=== PATIENT | female | born 2005 | race Caucasian/White ===

== ENCOUNTER 2024-10-01 20:18 | Emergency (ER) | payer BC, SELFPAY ==
[2024-10-01 20:32] VITALS: BP 129/84; PULSE 99; RESP 20; TEMP 36.6; O2SAT 99; BMI 26.1
--- NOTE | 2024-10-01 20:32 | ED_ITS ---
HPI - General Adult General Chief complaint: Abdominal Pain Stated complaint: abd pain, migraine Related Data Allergies Allergy/AdvReac Type Severity Reaction Status Date / Time No Known Allergies Allergy Verified 10/01/24 20:34 [facility] Social History Social History Advance Directives: No Advance Directives Information Provided: No Physical Exam ED Vital Signs: BMI result Body Mass Index 26.1 Course Course Course Narrative: RME, this is a rapid medical exam performed by Juan Acharya please refer to primary provider for complete H&P- 19 year year old female presents for evaluation of lower abdominal and vaginal bleeding. She reports that she was seen at a hospital in [place] 3 days ago for rectal bleeding and was discharged home. Plan for labs, UA and testing Medical Decision Making Lab Data 10/01/24 21:55 10/01/24 21:55 Labs: Lab Results 10/01/24 10/01/24 Range/Units 21:55 23:00 WBC 8.5 (4.8-10.8) X10*3/uL RBC 4.99 (4.20-5.50) X10*6/uL Hgb 13.6 (12.0-16.0) g/dl Hct 40.8 (37.0-47.0) % MCV 81.8 (80.0-98.0) fL MCH 27.3 (27.0-33.0) pg MCHC 33.3 (31.0-35.0) g/dl RDW 14.2 (11.0-16.0) % Plt Count 546 H (160-400) X10*3/uL MPV 9.1 L (9.4-12.3) fL Immature Gran % (Auto) 0.2 (0.0-0.4) % Neut % (Auto) 50.5 (45-73) % Lymph % (Auto) 37.1 (20-40) % [place] % (Auto) 8.8 (2-11) % Eos % (Auto) 2.6 (0-4) % Baso % (Auto) 0.8 (0-2) % Lymph # (Auto) 3.2 (1.2-4.9) X10*3/uL [place] # (Auto) 0.8 (0.1-1.2) X10*3/uL Eos # (Auto) 0.2 (0.0-0.4) X10*3/uL Baso # (Auto) 0.1 (0.0-0.2) X10*3/uL Abs Immat Gran (auto) 0.02 (0.00-0.03) X10*3/uL Absolute Neuts (auto) 4.3 (2.0-8.3) x10*3/uL Absolute Nucleated RBC 0.000 (0.0-0.012) X10*3/uL Nucleated RBC % (auto) 0.0 (0.0-0.2) /100WBC Sodium 139 (135-145) mmol/L Potassium 4.2 (3.3-5.1) mmol/L Chloride 107 (96-108) mmol/L Carbon Dioxide 23 (22-29) mmol/L Anion Gap 13 (12-20) BUN 13 (9-16) mg/dL Creatinine 0.69 (0.5-1.4) mg/dL Estim Creat Clear Calc 96.1 Estimated GFR > 60 Random Glucose 90 (60-115) mg/dL Calcium 9.4 (8.4-10.2) mg/dL Total Bilirubin 0.6 (0.0-1.0) mg/dL AST 19 (5-31) U/L ALT 14 (0-31) U/L Alkaline Phosphatase 71 (39-117) U/L Total Protein 8.5 H (6.5-8.0) g/dL Albumin 4.8 (3.5-5.0) g/dL Lipase 11 (8-78) U/L Beta HCG, Quant < 2 mIU/mL Urine Color Dark Yellow Urine Appearance Cloudy Urine pH 5.5 (5.0-9.0) Ur Specific [place] >= 1.030 H (1.005-1.025) Urine Protein Trace (Neg-Trace) mg/dL Urine Glucose (UA) Negative (Negative) mg/dL Urine Ketones Negative (Negative) mg/dL Urine Blood Moderate (2+) H (Negative) Urine Nitrite Negative (Negative) Ur Leukocyte Esterase Negative (Negative) Urine RBC 11-20 H (0-2) /HPF Urine WBC 6-10 H (0-5) /HPF Ur Squamous Epith Cells 11-20 (0-2) /HPF Urine Bacteria 3+ (None Seen) Hyaline Casts 0-2 (0-2) /LPF Discharge Plan Discharge Clinical Impression: Abdominal pain Patient Disposition: Left W/O Completing Treatment Discharge Date/Time: 10/02/24 05:01
[2024-10-01 22:00] LABS: MANUAL DIFF FLAG NO
[2024-10-01 22:01] LABS: Basophils Absolute Auto 0.1 X10*3/uL (0.0-0.2); Basophils Percent Auto 0.8 % (0-2); Eosinophils Absolute Auto 0.2 X10*3/uL (0.0-0.4); Eosinophils Percent Auto 2.6 % (0-4); Hematocrit 40.8 % (37.0-47.0); Hemoglobin 13.6 g/dl (12.0-16.0); Imm Gran Abs Auto 0.02 X10*3/uL (0.00-0.03); Imm Gran Pct Auto 0.2 % (0.0-0.4); Lymphocytes Absolute Auto 3.2 X10*3/uL (1.2-4.9); Lymphocytes Percent Auto 37.1 % (20-40); Mean Corpuscular HGB Conc 33.3 g/dl (31.0-35.0); Mean Corpuscular Hemoglobin 27.3 pg (27.0-33.0); Mean Corpuscular Volume 81.8 fL (80.0-98.0); Mean Platelet Volume 9.1 fL (9.4-12.3); Monocytes Absolute Auto 0.8 X10*3/uL (0.1-1.2); Monocytes Percent Auto 8.8 % (2-11); Neutrophils Absolute Auto 4.3 x10*3/uL (2.0-8.3); Neutrophils Percent Auto 50.5 % (45-73); Platelet Count 546 X10*3/uL (160-400); Red Blood Count 4.99 X10*6/uL (4.20-5.50); Red Cell Distribution Width 14.2 % (11.0-16.0); White Blood Count 8.5 X10*3/uL (4.8-10.8)
--- OUTSIDE RECORDS SUMMARY | 2024-10-01 22:12 | XMS_ITS | Clinical Summary ---
Author Organization [facility] Address [address] [place] [address] Care Team Providers Care Casing Soaker Name Role Phone Pcp, No Primary Care Provider Unavailabl e Allergies No known active allergies Medications albuterol HFA (PROVENTIL HFA;VENTOLIN HFA) 90 mcg/actuation inhaler Inhale 2 puffs every 6 (six) hours as needed for wheezing. Active norethindrone-ethi nyl estradiol-iron (09/01) 1 mg-20 mcg (21)/75 mg (7) per tabletIndications: Encounter for initial prescription of contraceptive pills Take 1 tablet by mouth daily. 84 tablet 3 1 Active pantoprazole (PROTONIX) 40 mg EC tabletIndications: gastroesophageal reflux disease Take 1 tablet (40 mg total) by mouth daily. 30 tablet 2 Active Active Problems Problem Noted Date Diagnosed Date Abdominal pain 05/08/2022 Family History Medical History Relation Name Comments Cancer (Ovarian) Maternal Great Grandmother Cancer (Breast) Other maternal great aunt Cancer (Colon) Neg Hx Relation Name Status Comments Maternal Great Grandmother Other maternal great aunt Alive Social History Tobacco Use Types Packs/Day Years Used Date Smoking Tobacco: Every Day Smokeless Tobacco: Never Comments:vaping Alcohol Use Standard Drinks/Week Comments Not Currently 0 (1 standard drink = 0.6 oz pur e alcohol) Hunger Vital Sign Answer Date Recorded Worried About Running Out of Food in the Last Ye ar Not on file 05/11/2022 Within the past 12 months, t he food you bought just didn't last and you didn't have money to get more. Patient declined PRAPARE - Transportation Answer Date Re corded In the past 12 months, has l ack of transportation kept you from medical appointments or from getting medications? Patient declined 05/11/2022 Lack of Transportation (Non-Medical) Not on file 05/11/2022 Violece/Safety Answer Date Recorded Are you concerned about your physical or emotional safety in your home or where you currently stay? No 12/06/2023 Comments No Sex and Gender Information Value Date Recorded Sex Assigned at Not on file Legal Sex Female 5:08 PM EDT Gender Identity Not on file Sexual Orientation Not on file Last Filed Vital Signs Vital Sign Reading Time Taken Comments Blood Pressure 131/58 12/06/2023 1:32 AM EDT Pulse 90 12/06/2023 3:26 AM EDT Temperature 36.8 ??C (98.2 ??F) 12/06/2023 1:32 AM ED T Respiratory Rate 18 12/06/2023 3:26 AM EDT Oxygen Saturation 98% 12/06/2023 3:26 AM EDT Inhaled Oxygen Concentration - - Weight 51.1 kg (112 lb 10.5 oz) 12/06/2023 1:32 AM EDT Height 147.3 cm (4' 10 ) 12/06/2023 1:32 AM EDT Body Mass Index 23.54 12/06/2023 1:32 AM EDT Plan of Treatment Health Maintenance Due Date Last Done Comments Pneumococcal immunization (0-49) (1 of 2 - PCV) 2009 07/18/2004, 2003, 2003, Additional history exists Hepatitis C Screening 2021 Annual Preventative Visit 07/30/2021 07/30/2020 Cervical Cancer Screening 02/23/2024 Influenza Vaccine (#1) 2024 7, 11/03/2015, 08/20/2014, Additional history exists DTaP,Tdap and Td Vaccines (7 - Td or Tdap) 08/20/2024 08/20/2014, 05/01/2007, 06/13/2004, Additional history exists Zoster Vaccines (1 of 2) 2053 Hepatitis B Vaccines Completed 2003, 2003, 2003 MMR Vaccines Completed 05/01/2007, 03/11/2004 Varicella Vaccines Completed 05/01/2007, 06/13/2004 Hepatitis A Vaccines Completed 06/10/2009, 05/01/20 07 Polio Vaccines Completed 11/01/2009, 08/15, 2003, Additional history exists HPV Vaccines Completed 02/03/2016, 10/12, 08/20/2014 Meningococcal A Vaccine Completed 10/30/2019, 08/20 Rotavirus Vaccines Aged Out No longer eligible based on patient's age to complete this topic Insurance [employer] Advance Directives * Full Code (Latest Code Status on File) Date Activated Date Inactivated Comments 05/08/2022 2:20 PM 05/10/2022 8:49 PM Care Teams Casing Soaker Relationship Specialty Start Date End Date Pcp, [address] [address] [place] [address] PCP - General 09/23/21
--- OUTSIDE RECORDS SUMMARY | 2024-10-01 22:12 | XMS_ITS | Encounter Summary ---
Author Organization [facility] Address [address] [place] [address] Care Team Providers Care Sewer Name Role Phone Francisco J Diaz Primary Care Provider Zeynep Husain Unavailable Encounter Details Date Type Department Care Team ([facility] Contact Info) Description 12/18/2023 [facility] [address] [place] [address] Abigail Dai MD [address] [place] [address] Social History Tobacco Use Types Packs/Day Years Used Date Smoking Tobacco: Never Assessed Sex and Gender Information Value Date Recorded Sex Assigned at Female 12/16/2023 10:38 PM EDT Gender Identity Nonbinary 12/16/2023 10:38 PM EDT Sexual Orientation Pansexual 12/16/2023 10 :38 PM EDT Job Start Date Occupation Industry Not on file Not on file Not on file documented as of this encounter Plan of Treatment Not on file documented as of this encounter Visit Diagnoses Not on filedocumented in this encounter Additional Health Concerns Infection Onset Date Last Indicated Resolved Time MRSA 12/09/2023 12/12/2023 documented as of this encounter Care Teams Sewer Relationship Specialty Start Date End Date Francisco J Diaz CRNP [address] [place] [address] PCP - General Family Medicine 11/20/22 Zeynep Husain [address] [place] [address] Psychiatrist Psychiatry 12/17/23 documented as of this encounter
--- OUTSIDE RECORDS SUMMARY | 2024-10-01 22:12 | XMS_ITS | Encounter Summary ---
Author Organization [facility] Address [address] [place] [address] Care Team Providers Care Lens Generating Machine Tender Name Role Phone Francisco J Diaz Primary Care Provider Zeynep Husain Unavailable Encounter Details Date Type Department Care Team ([facility] Contact Info) Description 12/18/2023 [facility] [address] [place] [address] Abigail Dai MD [address] [place] [address] Social History Tobacco Use Types Packs/Day Years [...] documented as of this encounter Care Teams Lens Generating Machine Tender Relationship Specialty Start Date End Date Francisco J Diaz CRNP [address] [place] [address] PCP - General Family Medicine 11/20/22 Zeynep Husain [address] [place] [address] Psychiatrist Psychiatry 12/17/23 documented as of this encounter
--- OUTSIDE RECORDS SUMMARY | 2024-10-01 22:12 | XMS_ITS | Encounter Summary ---
Author Organization [facility] Address [address] [place] [address] Care Team Providers Care Drafter Mechanical Name Role Phone Emily Francisco Jpatric SUN Primary Care Provider Zeynep Husain Unavailable Reason for Visit * Reason Comments Rectal Bleeding Abdominal Pain Encounter Details Date Type Department Care Team (Late st Contact Info) Description 09/28/2024 4:26 PM EST - 09/28/2024 7:09 PM EST Emergency [facility] Emergency Department [address] [place] [phone] Jing Molina MD [address] [place] [address] [phone] Abdominal pain (Primary Dx); Rectal bleeding Discharge Disposition: Home or Self Care (Routine) Social History Tobacco Use Types Packs/Day Years Used Date Smoking Tobacco: Never Assessed Sex and Gender Information Value Date Recorded Sex Assigned at Female 12/16/2023 10:38 PM EDT Gender Identity Nonbinary 12/16/2023 10:38 PM EDT Sexual Orientation Pansexual 12/16/2023 10 :38 PM EDT Job Start Date Occupation Industry Not on file Not on file Not on file documented as of this encounter Last Filed Vital Signs Vital Sign Reading Time Taken Comments Blood Pressure 101/69 09/28/2024 3:40 PM EST Pulse 88 09/28/2024 3:40 PM EST Temperature 36.8 ??C (98.2 ??F) 09/28/2024 3:40 PM ES T Respiratory Rate 18 09/28/2024 3:40 PM EST Oxygen Saturation 100% 09/28/2024 3:40 PM EST Inhaled Oxygen Concentration - - Weight 57.1 kg (125 lb 12.8 oz) 09/28/2024 3:39 PM EST Height - - Body Mass Index 26.29 11/08/2023 3:47 PM EDT documented in this encounter Discharge Instructions * Attachments The following attachments cannot be sent through Care Everywhere. * Rectal Bleeding (Kenyan) * Abdominal Pain (Kenyan) documented in this encounter Medications at Time of Discharge Medication Sig Dispensed Refills Start Date End Date acetaminophen 500 mg tablet Take 2 tablets by mouth every 6 hours as needed (mild to moderate pain). 60 tablet 12/17/2023 Cholecalciferol (VITAMIN D3) 125 MCG (5000 UT) tabletIndications:Vitami n D insufficiency Take 1 tablet by mouth daily. 90 tablet 1 05/29/2024 escitalopram (LEXAPRO) 10 mg tabletIndications:Bipola r affective disorder, current episode mixed, without psychotic features (CMS-HCC),Anxiety disorder, unspecified type Take 1 tablet by mouth daily at bedtime. 90 tablet 1 06/26/2024 10/01/2024 lurasidone (LATUDA) 40 MG tabletIndications:Bipola r affective disorder, current episode mixed, without psychotic features (CMS-HCC) Take 1 tablet by mouth daily with dinner. 90 tablet 1 06/26/2024 10/01/2024 documented as of this encounter ED Notes * Sabina Dove RN - 09/28/2024 6:47 PM EST POC test is NEG * Jami Pablo RN - 09/28/2024 3:39 PM EST Patient arrives to the ED with abdominal pain that's been going on for a few months that went away and now starting to hurt again. Patient states bright red bleeding with bowel movements. Patient is AAOx3. * Jing Molina MD - 09/28/2024 3:18 PM EST Emergency Department Provider Note Authentication I saw and evaluated Nikole Young primarily. Chief Complaint Rectal Bleeding and Abdominal Pain History of Present Illness In the Patient was a 19-year-old female who reports that she had had several months worth of bleeding around normal-appearing stools that had gone away since April to June and in the last 5 days hasreturned. The blood it was on the toilet paper when she wipes or in the toilet bowl and around the stool but not in the stool. She denies any mucousy stool. She reports that over these past 5 days she was also had intermittent cramping burning lower abdominal pains that will come and go intermittently lasting a few hours at a time and then completely resolve. She was no vaginal discharge or urinary symptoms. She has no weight loss in fact she was gaining a little bit of weight. She has had no fe vers. She was an uncle who had inflammatory bowel disease. She denies any constipation or diarrhea. Review of Systems Review of Systems Constitutional: Negative for chills and fever. HENT: Negative for rhinorrhea and sore throat. Respiratory: Negative for cough and shortness of breath. Cardiovascular: Negative for chest pain. Gastrointestinal: Negative for diarrhea, nausea and vomiting. Physical Exam Physical Exam Vitals and nursing note reviewed. Constitutional: General: She is not in acute distress. Appearance: Normal appearance. She is well-developed. She is not ill-appearing, toxic-appearing or diaphoretic. HENT: Head: Normocephalic and atraumatic. Eyes: Conjunctiva/sclera: Conjunctivae normal. Pulmonary: Effort: Pulmonary effort is normal. No respiratory distress. Abdominal: General: There is no distension. Palpations: Abdomen is soft. There is no mass. Tenderness: There is no guarding or rebound. Hernia: No hernia is present. Comments: There is some tenderness to deep palpation only in a broad area of bilateral lower abdomen. Genitourinary: Comments: Anus appeared normal with a couple of skin tags but no anal fissures or apparent hemorrhoids externally Skin: General: Skin is warm and dry. Coloration: Skin is not pale. Findings: No erythema or rash. Neurological: Mental Status: She is alert. Psychiatric: Behavior: Behavior normal. Medical Decision Making Nikole Young is a 19 y.o. person presents with some crampy low abdominal pain intermittently for the last several months more intense over the last few days as well as some fluctuating blood per rectum around normal-appearing stool to her. Differential diagnoses include, but are not limited to, hemorrhoidal bleed, doubt colon cancer or polyp, she lacks the features typical of inflammatory bowel disease despite positive family history of such. He was in very reassuring abdominal examination. Due to the intermittent nature of the pain,inflammatory process or infectious process is significantly less likely. I suspect gastrointestinalgas pains most likely. Old Records Review I have reviewed old records in [facility] as available and appropriate to obtain clinical information to better manage this pt's condition. I reviewed the internal medicine note from December 16, 2023 Patient was non binary with a past history of bipolar disorder, asthma, psoriasis who presented to the emergency department with right great toe redness found to have a MRSA abscess status post I andD and IV vanco. LABS I reviewed the lab results and considered them in relation to the patient's clinical presentation. White blood cells 8.6 Hemoglobin is 12.7 HCG is negative Urinalysis is unremarkable Many times patient who presents to the emergency department with the abdominal pain require a CT scan of the abdomen and pelvis for further clarification. I had long discussion with the patient aboutthe nature of her pain and the low likelihood that a CT scan would identify an emergency clinical circumstance today. The intermittent nature of her pain and reassuring examination were both featuresthat made me have low clinical concern for acute infectious etiology or inflammatory condition. We had shared decision-making discussing the risks benefits ratio such CT scanning and to me, the exposure to the radiation is not worth the fleetingly low likelihood that the CT scan would show anythingto the contrary. She agreed with this approach. I have discussed the management of this patient and their diagnostic tests with the following external providers: None The below listed factors contribute to the complexity of the management of the patient: Social determinants of health, which affects the patient's ability to obtain follow-up care after discharge and/or requires repeat monitoring by medical staff: None Past medical history/chronic conditions, which affect(s) patient recovery: None ED Course and Reassessments Patient remained stable while in the emergency department Clinical Impression and Plan Low-grade blood per rectum with no worrisome cause identified Intermittent crampy lower abdominal pain with a very reassuring physical examination and diagnostics. No worrisome etiology identified DC home with follow up with primary care doctor recommended. She may need referral to gastroenterology for further evaluation of blood per rectum. Return precautions reviewed in great detail. Disposition Discharge Attestation and Authentication I saw and evaluated Nikole Young primarily as an Attending. Jing Molina MD 09/29/24 1413 documented in this encounter Plan of Treatment Not on file documented as of this encounter Procedures Procedure Name Priority Date/Time Associated Diagnosis Comments HC URINE TEST Routine 09/28/2024 6:41 PM EST HC URINALYSIS, AUTOMATED, WITHOUT MICROSCOPY Routine 09/28/2024 6:11 PM EST HC URINALYSIS, AUTOMATED, WITHOUT MICROSCOPY Routine 09/28/2024 5:51 PM EST GLOMERULAR FILTRATION RATE-ESTIMATED STAT 09/28/2024 5:39 PM EST HC COMPLETE CBC W/AUTO DIFF WBC STAT 09/28/2024 5:39 PM EST HEME PROFILE + ELECT DIFF STAT 09/28/2024 5:39 PM EST HC BASIC METABOLIC PANEL STAT 09/28/2024 5:39 PM EST documented in this encounter Results * HCG - POC (09/28/2024 6:41 PM EST) HCG POC Negative [facility] URINE SPECIMEN / Unknown 09/28/2024 6:41 PM EST 09/28/2024 6:41 PM EST Narrative [facility] - 09/29/2024 8:06 AM EST Test performed at Point of Care Jing Molina MD LABORATOR Y Performing Organization Address [facility] Co de Phone Number [facility] [address] [place] [phone] * (ABNORMAL) POC UA DIPSTICK (09/28/2024 6:11 PM EST) Only the most recent of2 resultswithin the time period is included. UA Color Yellow [facility] INCOM[facility] UA Appearance Clear <= Clear HS P [facility] LAB INCOMING UA Glucose Negative Negative mg/dL [facility] UA pH 8.5(H) 5.0 - 7.0 [facility] INCOMING UA Bilirubin Negative [facility] INCOMING UA Ketones Negative Negative mg/dL [facility] UA Specific [place] 1.020 1.010 - 1.030 [facility] UA Blood Trace-intact [facility] INCOM[facility] UA Protein 30(A) Negative mg/dL [facility] UA Urobilinogen 0.2 Normal mg/dL [facility] UA Leukocyte Esterase Negative Negative Ginger/uL [facility] UA Nitrite Negative [facility] URINE SPECIMEN / Unknown 09/28/2024 6:11 PM EST 09/28/2024 6:11 PM EST Narrative [facility] - 09/28/2024 6:14 PM EST Test performed at Point of Care Jing Karuna Molina MD LABORATOR Y Performing Organization Address [facility] Co de Phone Number [facility] [address] [place] [phone] * GLOMERULAR FILTRATION RATE-ESTIMATED (09/28/2024 5:39 PM EST) eGFR 136 >=60 mL/min/1. 73 m2 [facility] Comment: Estimated glomerular filtration rate (eGFR) is calculated without a race coefficient. Values should be interpreted in the context of the patient's full clinical presentation. Reference: Cintia Mims, et al. A unifying approach for GFR estimation: recommendations of the NKF-ASN task force on reassessing the inclusion of race in diagnosing kidney disease. [place] Journal of Kidney Diseases (2020) BLOOD SPECIMEN / Unknown 09/28/2024 5:39 PM EST 09/28/2024 5:42 PM EST Narrative [facility] - 09/28/2024 6:16 PM EST [place] [address] Jing Molina MD LAB BLOOD ORDERABLES Performing Organization Address [facility] de Phone Number [facility] [address] [place] [phone] * AUTOMATED DIFF (09/28/2024 5:39 PM EST) % Neutrophils 51.1 % [facility] INCOM[facility] % Lymphocytes 35.5 % [facility]COM[facility] % Monocytes 8.7 % [facility] % Eosinophils 3.7 % [facility]COM[facility] % Basophils 1.0 % [facility] # Neutrophils 4.40 1.80 - 7.50 10*3/uL [facility] Comment: The manual differential may sometimes be more sensitive in the detection of blasts than the automated differential. ??Physicians should contact the laboratory as soon as possible to request a manual differential if the automated results are potentially discrepant with clinical findings. # Lymphocytes 3.10 1.00 - 5.00 10*3/uL [facility] # Monocytes 0.80 0.10 - 1.00 10*3/uL [facility] # Eosinophils 0.30 0.00 - 0.40 10*3/uL [facility] # Basophils 0.10 0.00 - 0.20 10*3/uL [facility] BLOOD SPECIMEN / Unknown 09/28/2024 5:39 PM EST 09/28/2024 5:42 PM EST Narrative [facility] - 09/28/2024 5:49 PM EST [place] [address] Jing Molina MD LAB BLOOD ORDERABLES Performing Organization Address [facility]/ZIP Co de Phone Number [facility] [address] [place] [phone] * (ABNORMAL) HEME PROFILE + ELECT DIFF (09/28/2024 5:39 PM EST) White Blood Cells 8.6 4.0 - 11.0 10*3/uL [facility] Red Blood Cells 4.65 3.80 - 5.30 10*6/uL [facility] Hemoglobin 12.7 12.0 - 16.0 g/dL [facility] Hematocrit 38 36 - 46 % [facility] MCV 83 80 - 100 fL [facility] MCH 27 27 - 33 pg [facility] MCHC 33 31 - 36 g/dL [facility] RDW 14.5 11.5 - 14.5 % [facility] Platelets 477(H) 150 - 400 10*3/uL [facility] Blood BLOOD SPECIMEN / Unknown 09/28/2024 5:39 PM EST 09/28/2024 5:42 PM EST Narrative [facility] - 09/28/2024 5:49 PM EST [place] [address] Jing Molina MD LAB BLOOD ORDERABLES [facility] [address] [place] [phone] * BASIC METABOLIC PANEL (09/28/2024 5:39 PM EST) [facility] Glucose 96 70 - 99 mg/dL [facility] Urea Nitrogen 14 8 - 20 mg/dL [facility] Creatinine 0.51 0.44 - 1.03 mg/dL [facility] Sodium 139 136 - 144 mmol/L [facility] Potassium 4.9 3.6 - 5.1 mmol/L [facility] Chloride 105 101 - 111 mmol/L [facility] Carbon Dioxide 31 22 - 32 mmol/L [facility] Anion Gap 3 3 - 12 [facility] Comment: With hypoalbuminemia, anion gap correction is suggested using Na - (Cl+CO2) + 2.5*(4 - Albumin). ??The lab reports Na - (Cl+CO2). Calcium 9.3 8.9 - 10.3 mg/dL [facility] BLOOD SPECIMEN / Unknown 09/28/2024 5:39 PM EST 09/28/2024 5:42 PM EST Narrative [facility] - 09/28/2024 6:16 PM EST [place] [address] Jing Molina MD LAB BLOOD ORDERABLES [facility] [address] [place] [phone] documented in this encounter Visit Diagnoses Diagnosis Abdominal pain- Primary Abdominal pain, unspecified site Rectal bleeding Hemorrhage of rectum and anus documented in this encounter Additional Health Concerns Infection Onset Date Last Indicated Resolved Time MRSA 12/09/2023 12/12/2023 documented as of this encounter Care Teams Drafter Mechanical Relationship Specialty Start Date End Date Francisco J Diaz CRNP [address] [place] [phone] PCP - General Family Medicine 11/20/22 Zeynep Husain [address] [place] [phone] Psychiatrist Psychiatry 12/17/23 documented as of this encounter
--- OUTSIDE RECORDS SUMMARY | 2024-10-01 22:12 | XMS_ITS | Clinical Summary ---
Author Organization [facility] Address [address] [place] [address] Care Team Providers Care Railway Yard Assistant Name Role Phone Francisco J Diaz Primary Care Provider Zeynep Husain Unavailable Allergies No known active allergies Medications Medication Sig Dispensed Refills Start Date End Date Status acetaminophen 500 mg tablet Take 2 tablets by mouth every 6 hours as needed (mild to moderate pain). 60 tablet 12/17/2023 Active Cholecalciferol (VITAMIN D3) 125 MCG (5000 UT) tabletIndications:V itamin D insufficiency Take 1 tablet by mouth daily. 90 tablet 1 05/29/2024 Active sulfamethoxazole-tr imethoprim DS 800-160 mg per tablet Take 1 tablet by mouth 2 times a day. 09/30/2024 Active fluoxetine 20 mg capsuleIndications: PTSD (post-traumatic stress disorder) Take 1 capsule by mouth daily. 30 capsule 2 10/01/2024 Active lurasidone (LATUDA) 40 MG tabletIndications:B ipolar affective disorder, current episode mixed, without psychotic features (CMS-HCC) Take 1 tablet by mouth daily with dinner. 90 tablet 1 06/26/2024 5 Discontinue d(No longer taking) escitalopram (LEXAPRO) 10 mg tabletIndications:B ipolar affective disorder, current episode mixed, without psychotic features (CMS-HCC),Anxiety disorder, unspecified type Take 1 tablet by mouth daily at bedtime. 90 tablet 1 06/26/2024 5 Discontinue d(No longer taking) Active Problems Problem Noted Date Diagnosed Date Cellulitis of great toe of right foot 12/17/2023 Hx of drainage of abscess 12/17/20232023 MRSA cellulitis of right foot 12/17/2023 Encounters Date Type Department Care Team Description 09/28/2024 4:26 PM EST - 09/28/2024 7:09 PM EST Emergency [facility] Emergency Department [address] [place] [phone] Jing Molina MD Abdominal pain (Primary Dx); Rectal bleeding Discharge Disposition: Home or Self Care (Routine) from Last 3 Months Social History Tobacco Use Types Packs/Day Years Used Date Smoking Tobacco: Never Assessed Sex and Gender Information Value Date Recorded Sex Assigned at Female 12/16/2023 10:38 PM EDT Gender Identity Nonbinary 12/16/2023 10:38 PM EDT Sexual Orientation Pansexual 12/16/2023 10 :38 PM EDT Job Start Date Occupation Industry Not on file Not on file Not on file Last Filed Vital Signs [...] 12.8 oz) 09/28/2024 3:39 PM EST Height 147.3 cm (4' 10 ) 11/08/2023 3:47 PM EDT Body Mass Index 26.29 11/08/2023 3:47 PM EDT Plan of Treatment Health Maintenance Due Date Last Done Comments Pneumococcal 0-64 Vaccine (1 of 2 - PCV) 2009 07/18/2004, 2003, 2003, Additional history exists HIV SCREENING ONCE 2018 LIPIDS 2021 Cervical Cancer Screening 02/23/2024 Colposcopy 02/23/2024 Excision 02/23/2024 Pap Smear 02/23/2024 INFLUENZA Vaccine (#1) 2024 7, 11/03/2015, 08/20/2014, Additional history exists DTAP/TDAP/TD Vaccine (7 - Td or Tdap) 08/20/2024 08/20/2014, 05/01/2007, 06/13/2004, Additional history exists ZOSTER VACCINES (1 of 2) 2053 Hepatitis A Vaccine Completed 06/10/2009, 7 HPV Vaccine Completed 02/03/2016, 10/12, 08/20/2014 MENINGITIS ACWY Vaccine Completed 10/30/2019, 08/20 HEPATITIS C SCREENING Completed 12/17/2023 Procedures Procedure Name Priority Date/Time Associated Diagnosis [...] METABOLIC PANEL STAT 09/28/2024 5:39 PM EST HEPATITIS C ANTIBODY IGM + IGG WITH REFLEX TO HCV PCR Routine 12/17/2023 8:05 AM EDT from Last 3 Months or Most Recently Relevant to Health Maintenance Results * HCG - POC (09/28/2024 6:41 PM EST) HCG POC Negative [facility] INCOMING URINE SPECIMEN / Unknown 09/28/2024 6:41 PM EST 09/28/2024 6:[address] [facility] INCOMING - 09/29/2024 8:06 AM EST Test performed at Point of Care Jing Molina MD LABORATOR Y Performing Organization Address [facility] de Phone Number [facility] INCOMING [address] [place] [phone] * (ABNORMAL) POC UA DIPSTICK (09/28/2024 6:11 PM EST) Only the most recent of2 resultswithin the time period is included. UA Color Yellow [facility] L AB INCOMING UA Appearance Clear <= Clear [facility] INCOMING UA Glucose Negative Negative mg/dL [facility] INCOMING UA pH 8.5(H) 5.0 - 7.0 [facility] PA[facility] L AB INCOMING UA Bilirubin Negative [facility] PA H LAB INCOMING UA Ketones Negative Negative mg/dL [facility] INCOMING UA Specific [place] 1.020 1.010 - 1.030 [facility] INCOMING UA Blood Trace-intact [facility] PA H LAB INCOMING UA Protein 30(A) Negative mg/dL [facility] INCOMING UA Urobilinogen 0.2 Normal mg/dL [facility] INCOMING UA Leukocyte Esterase Negative Negative Ginger/uL [facility] INCOMING UA Nitrite Negative [facility] INCOMING URINE SPECIMEN / Unknown 09/28/2024 6:11 PM EST 09/28/2024 6:[address] [facility] INCOMING - 09/28/2024 6:14 PM EST Test performed at Point of Care Jing Molina MD LABORATOR Y Performing Organization Address [facility] de Phone Number [facility] INCOMING [address] [place] [phone] * GLOMERULAR FILTRATION RATE-ESTIMATED (09/28/2024 5:39 PM EST) eGFR 136 >=60 mL/min/1. [address] [facility] INCOMING Comment: Estimated glomerular filtration rate (eGFR) is calculated without a race coefficient. Values should be interpreted in the context of the patient's full clinical presentation. Reference: Cintia Mims et al. A unifying approach for GFR estimation: recommendations of the NKF-ASN task force on reassessing the inclusion of race in diagnosing kidney disease. [place] Journal of Kidney Diseases (2020) BLOOD SPECIMEN / Unknown 09/28/2024 5:39 PM EST 09/28/2024 5:[address] [facility] INCOMING - 09/28/2024 6:16 PM [place] [address] Jing Molina MD LAB BLOOD ORDERABLES Performing Organization Address [facility] de Phone Number [facility] INCOMING [address] [place] [phone] * AUTOMATED DIFF (09/28/2024 5:39 PM EST) % Neutrophils 51.1 % [facility] LAB INCOMING % Lymphocytes 35.5 % [facility] LAB INCOMING % Monocytes 8.7 % [facility] LAB INCOMING % Eosinophils 3.7 % [facility] LAB INCOMING % Basophils 1.0 % [facility] INCOMING # Neutrophils 4.40 1.80 - 7.50 10*3/uL [facility] INCOM[facility] Comment: The manual differential may sometimes be more sensitive in the detection of blasts than the automated differential. ??Physicians should contact the laboratory as soon as possible to request a manual differential if the automated results are potentially discrepant with clinical findings. # Lymphocytes 3.10 1.00 - 5.00 10*3/uL [facility] INCOM[facility] # Monocytes 0.80 0.10 - 1.00 10*3/uL [facility]COM[facility] # Eosinophils 0.30 0.00 - 0.40 10*3/uL [facility] INCOMING # Basophils 0.10 0.00 - 0.20 10*3/uL [facility] INCOMING BLOOD SPECIMEN / Unknown 09/28/2024 5:39 PM EST 09/28/2024 5:[address] [facility] INCOMING - 09/28/2024 5:49 PM EST Test performed at [place] [id number] Jing Molina MD LAB BLOOD ORDERABLES Performing Organization Address [facility]/ZIP Co de Phone Number [facility] INCOMING [address] [place] [phone] * (ABNORMAL) HEME PROFILE + ELECT DIFF (09/28/2024 5:39 PM EST) White Blood Cells 8.6 4.0 - 11.0 10*3/uL [facility] INCOMING Red Blood Cells 4.65 3.80 - 5.30 10*6/uL [facility] INCOMING Hemoglobin 12.7 12.0 - 16.0 g/dL [facility] INCOMING Hematocrit 38 36 - 46 % [facility] INCOM[facility] MCV 83 80 - [address] [facility]COM[facility] MCH 27 27 - [address] [facility] INCOMING MCHC 33 31 - 36 g/dL [facility] INCOMING RDW 14.5 11.5 - 14.5 % [facility] INCOMING Platelets 477(H) 150 - 400 10*3/uL [facility] INCOMING Blood BLOOD SPECIMEN / Unknown 09/28/2024 5:39 PM EST 09/28/2024 5:[address] [facility] INCOMING - 09/28/2024 5:49 PM EST Test performed at [facility], [address] [place] [address] Jing Molina MD LAB BLOOD ORDERABLES Performing Organization Address [facility]/ZIP Co de Phone Number [facility] INCOMING [address] [place] [phone] * BASIC METABOLIC PANEL (09/28/2024 5:39 PM EST) Pathologist [facility] Glucose 96 70 - 99 mg/dL [facility] INCOMING Urea Nitrogen 14 8 - 20 mg/dL [facility] INCOMING Creatinine 0.51 0.44 - 1.03 mg/dL [facility] INCOMING Sodium 139 136 - 144 mmol/L [facility] INCOMING Potassium 4.9 3.6 - 5.1 mmol/L [facility] INCOMING Chloride 105 101 - 111 mmol/L [facility] INCOMING Carbon Dioxide 31 22 - 32 mmol/L [facility] INCOMING Anion Gap 3 3 - 12 [facility] INCOM[facility] Comment: With hypoalbuminemia, anion gap correction is suggested using Na - (Cl+CO2) + 2.5*(4 - Albumin). ??The lab reports Na - (Cl+CO2). Calcium 9.3 8.9 - 10.3 mg/dL [facility] INCOMING BLOOD SPECIMEN / Unknown 09/28/2024 5:39 PM EST 09/28/2024 5:[address] [facility] INCOMING - 09/28/2024 6:16 [place] [address] Jing Molina MD LAB BLOOD ORDERABLES Performing Organization Address [facility] Co de Phone Number [facility] INCOMING [address] [place] [phone] * HEPATITIS C ANTIBODY IGM + IGG WITH REFLEX TO HCV PCR (12/17/2023 8:05 AM EDT) HEPATITIS C AB Non-Reacti ve [facility] INCOMING Comment: This test can be negative in early Hepatitis C infection. ??Repeat testing in two to four weeks may be indicated if clinical suspicion is high. BLOOD SPECIMEN / Unknown 12/17/2023 8:05 AM EDT 12/17/2023 8:[address] [facility] INCOMING - 12/17/2023 9:41 [place] [address] Lori Gavin DO LAB BLOOD ORDERABLES Performing Organization Address City/[facility] Co de Phone Number [facility] INCOMING [address] [place] [phone] from Last 3 Months or Most Recently Relevant to Health Maintenance Additional Health Concerns Infection Onset Date Last Indicated MRSA 12/09/2023 12/12/2023 Advance Directives * Full Code (Latest Code Status on File) Date Activated Date Inactivated Comments 12/16/2023 10:27 PM 12/17/2023 9:33 PM Care Teams Railway [employer] Assistant Relationship Specialty Start Date End Date Francisco J Diaz CRNP [address] [place], [place] [id number] PCP - General Family Medicine 11/20/22 Zeynep Husain [facility] [place] [address] Psychiatrist Psychiatry 12/17/23
--- OUTSIDE RECORDS SUMMARY | 2024-10-01 22:12 | XMS_ITS ---
Author Organization [id number] Care Team Providers Care Acid Adjuster Name Role Phone VITOR SHANDRA WARREN Unavailable UnavailJOVANNA [place] Unavailable Unavailable CORBIN COLON Unavailable Unavailable VINOD DAWSON Unavailable Kamila vaMARIA ANTONIA Padgett Unavailable Unavailable NICOLESASCHA Primary Care Provider Un available PCP, NO Primary Care Provider UnavailMARIA ANTONIA Ortiz Primary Care Provider Unava ilable Allergies and Adverse Reactions Allergen Type Allergen Reactions Criticality Status Onset Date Resolution Date Documentation Date Authors Informants Allergy to substance (disorder ) Allergy to substance (disorder ) active Lyn Newby ([facility] ) Problems Problem Type Problem Status Onset Date Resolution Date Documentation Date Authors Informants Methicillin resistant Staphylococcu s aureus infection as the cause of diseases classified elsewhere 2023 08:33: 43 AM [facility] Cellulitis of right lower limb 2023 08:33: 43 AM [facility] Other specified postprocedura l states 2023 08:32: 29 AM [facility] Cellulitis of right toe 2023 08:31: 13 AM [facility] Disease (disorder) Abdominal pain (finding) Active (qualif ier value) 202105/08/2022 Unspecified abdominal pain [facility] Diagnosis interpretatio n (observable entity) Patient encounter status (finding) Cutaneous abscess of unspecified foot [facility] RT Thumb toe pain [facility] Unspecified asthma, uncomplicated [facility] Vomiting, unspecified [facility] Flu symptoms, Body pain [facility] vomiting abd burning [facility] Pain in right ankle and joints of right foot [facility] Encounter for screening for COVID-19 [facility] vomit & abd pain [facility] Cutaneous abscess of right foot [facility] Hemorrhage of anus and rectum [facility] Cellulitis, unspecified [facility] UTI [facility] Problem (finding) 19919 Bipolar disorder, unspecified [facility] Psoriasis, unspecified [facility] car door hit hand [facility] Encounters Encounter Location Date Diagnoses Problems Providers Authors Informants Emergency [facility] 2024 04:26: 00 PM - 2024 07:09: 00 PM Unspecified abdominal pain Hemorrhage of anus and rectum Attender: VINOD DAWSON ([facility]) [facility] Emergency [facility] 2023 04:13: 00 PM - 2023 06:12: 00 PM Vomiting, unspecified Encounter for screening for COVID-19 [facility] Outpatient SH5 2023 05:02: 00 PM - 2023 05:32: 00 PM Cutaneous abscess of right foot Cellulitis, unspecified Cellulitis of right toe Cellulitis of right lower limb Methicillin resistant Staphylococcus aureus infection as the cause of diseases classified elsewhere Other specified postprocedural states Psoriasis, unspecified Bipolar disorder, unspecified Unspecified asthma, uncomplicated Admitter: JOVANNA SHEEHAN ([facility]) Attender: CORBIN COLON ([facility]) [facility] Emergency [facility] 2023 06:45: 00 PM - 2023 10:29: 00 PM Cutaneous abscess of unspecified foot Cutaneous abscess of right foot Attender: MARIA ANTONIA LIN ([facility]) [facility] Emergency [facility]HDED 2023 01:35: 00 AM - 2023 05:00: 00 AM RT Thumb toe pain Pain in right ankle and joints of right foot Attender: SHANDRA ADLER ([facility]) [facility] Insurance Providers Payer name Policy type / Coverage type Policy ID Covered republican ID Covered republican's relationship to e[place]ert Policy [place] Plan Information [employer] PPO Self [place]O [place] [id number] [employer] PPO Self NEO [place] [id number] [employer] [place] FFS Self NEO [place] [id number] [employer] Self GIL DEVAN BEAULIEU [id number] [employer] MEDICAID Self [place] [id number] Plan of Care Planned Activity Planned Date Instructions Description Oc a Source(s) pantoprazole (PROTONIX) 40 mg EC tablet Take 1 tablet (40 mg total) by mouth daily. [facility] norethindrone-ethinyl estradiol-iron (JUNE FE 09/01) 1 mg-20 mcg (21)/75 mg (7) per tablet Take 1 tablet by mouth daily. [facility] albuterol HFA (PROVENTIL HFA;VENTOLIN HFA) 90 mcg/actuation inhaler UNK Inhale 2 puffs zaheer ry 6 (six) hours as needed for wheezing. [facility] Social History Social History Value Effective Dates Authors Infor hernan Exposure to SARS-CoV-2 (event) No / Unsure 04/30/2022 12:00:00 AM - 05/10/2022 01:48:00 PM Vital Signs Vital Sign Value Time Taken Authors Informants WEIGHT 51.211 kg 12/16/2023 10:30:00 PM WEIGHT 51.211 kg 12/16/2023 04:54:00 PM HEIGHT 12/06/2023 01:32:00 AM WEIGHT 112.66 lb 12/06/2023 01:32:00 AM WEIGHT 57.063 kg 09/28/2024 03:39:00 PM
--- OUTSIDE RECORDS SUMMARY | 2024-10-01 22:12 | XMS_ITS | Encounter Summary ---
Author Organization [facility] Address [address] [place] [address] Care Team Providers Care Professor In Family Studies Name Role Phone Francisco J Diaz Primary Care Provider Zeynep Husain Unavailable Encounter Details Date Type Department Care Team ([facility] Contact Info) Description 12/18/2023 [facility] [address] [place] [address] Abigail Dai MD [address] [place] [address] Social History Tobacco Use Types Packs/Day Years [...] documented as of this encounter Care Teams Professor In Family Studies Relationship Specialty Start Date End Date Francisco J Diaz CRNP [address] [place] [address] PCP - General Family Medicine 11/20/22 Zeynep Husain [address] [place] [address] Psychiatrist Psychiatry 12/17/23 documented as of this encounter
[2024-10-01 22:21] LABS: Alanine Aminotransferase 14 U/L (0-31); Albumin Level 4.8 g/dL (3.5-5.0); Alkaline Phosphatase 71 U/L (39-117); Anion Gap 13 (12-20); Aspartate Amino Transferase 19 U/L (5-31); Bilirubin Total 0.6 mg/dL (0.0-1.0); Blood Urea Nitrogen 13 mg/dL (9-16); Calcium 9.4 mg/dL (8.4-10.2); Carbon Dioxide 23 mmol/L (22-29); Chloride 107 mmol/L (96-108); Creatinine Clr Calc Pharmacy 96.1; Estimated Glomerular Filt Rate > 60; Glucose Random 90 mg/dL (60-115); Lipase 11 U/L (8-78); Potassium 4.2 mmol/L (3.3-5.1); Sodium 139 mmol/L (135-145); Total Protein 8.5 g/dL (6.5-8.0)
[2024-10-01 22:25] LABS: HCG Quantitative < 2 mIU/mL
[2024-10-01 23:14] LABS: Appearance Urine Cloudy; Color Urine Dark Yellow; Glucose Urine UA Negative (Negative); Leukocyte Esterase Urine Negative (Negative); Nitrite Urine Negative (Negative); PH 5.5 (5.0-9.0); Specific Gravity - Urine >= 1.030 (1.005-1.025); UMIC TRIGGER UACC YES; Urine Blood Moderate (2+) (Negative); Urine Ketones Negative (Negative); Urine Protein Trace mg/dL (Neg-Trace)
[2024-10-01 23:19] LABS: Bacteria Urine 3+ (None Seen); Hyaline Casts Urine 0-2 /LPF (0-2); UACC Culture Trigger YES
== END 2024-10-02 05:01 | disposition left against medical advice (07) ==
PROVIDERS: Physician Assistant; Emergency Provider Emergency Medicine Emergency Medical Services
DX: R10.30 Lower abdominal pain, unspecified (principal)
CPT/HCPCS: 36415; 80053; 81001; 83690; 84702; 85025; 87086; 99282; 99283